=== PATIENT | male | born 1980 | race Two or more races ===

== ENCOUNTER 2019-08-09 18:04 | Emergency (ER) | payer SELFPAY ==
[~2019-08-09] VITALS: Ht 185.4 cm; Wt 125.0 kg
[2019-08-09] MEDS ORDERED: SODIUM CHLORIDE 0.9% 1,000 ML IV ONE (18:57)
[2019-08-09 20:47] LABS: BASOPHILS % 0.7 % (0.0-2.0); EOSINOPHILS % 0.5 % (0.0-5.0); HEMATOCRIT. 42.8 % (42.0-52.0); HEMOGLOBIN. 14.5 g/dL (14.0-18.0); LYMPHOCYTES % 19.4 % (20.0-50.0); MEAN CORPUSCULAR HEMOGLOBIN 31.1 pg (28.0-32.0); MEAN CORPUSCULAR VOLUME 91.5 fL (80.0-94.0); MEAN PLATELET VOLUME 9.3 fl (7.4-10.4); NEUTROPHILS % 68.4 % (40.0-76.0); PLATELET 277 x1000/uL (130-400); RED BLOOD CELL COUNT 4.68 mill/uL (4.7-6.1)
[2019-08-09 20:53] LABS: CHLORIDE 109 mEq/L (98-107)
[2019-08-09 20:57] LABS: ETHANOL BLOOD < 10 mg/dL
[2019-08-09 21:30] VITALS: BP 164/94
== END 2019-08-09 21:53 | disposition home or self-care (01) ==
LOC: ER 18:04 → EDBD 18:04 → ER 21:53
DX: T50.7X1A Poisoning by analeptics and opioid receptor antagonists, accidental (unintentional), initial encounter (principal); F29 Unspecified psychosis not due to a substance or known physiological condition; Y92.89 Other specified places as the place of occurrence of the external cause; R56.9 Unspecified convulsions
CPT/HCPCS: 36415; 80053; 80185; 80320; 82962; 85025; 96360; 99283; J7030; G0480

== ENCOUNTER 2019-08-15 22:52 | Emergency (ER) | payer SELFPAY ==
[~2019-08-15] VITALS: Ht 172.7 cm; Wt 100.0 kg
[2019-08-15 23:14] VITALS: BP 130/56
== END 2019-08-15 23:24 | disposition home or self-care (01) ==
LOC: ER 22:52
DX: F12.10 Cannabis abuse, uncomplicated (principal); R45.6 Violent behavior; F99 Mental disorder, not otherwise specified
CPT/HCPCS: 99283